=== PATIENT | female | born 1970 | race African-American/Black ===

== ENCOUNTER 2017-09-02 09:36 | Emergency (ER) | payer BC, OTHER ==
[2017-09-02 09:50] VITALS: BP 135/77; PULSE 70; TEMP 98.6; BMI 24.4
--- NOTE | 2017-09-02 10:06 | PDOC ---
History of Present Illness - General Chief Complaint: Injury Stated Complaint: LEFT HAND NUMB Time Seen by Provider: 09/02/17 09:41 History Source: Patient Exam Limitations: No Limitations - History of Present Illness Initial Comments: The patient is a 47F with no reported history who presents with approximately 1 month of hypothenar decreased sensation. She reports repeated banging of her elbow while on vacation, and since that time has been having parasthesias of her left 5th, partial left 4th, and hypothenar emience. She states that her symptoms are exacerbated by hyperflexion of her elbow. She denies any other associated symptoms or a history of neuropathy or DM. 09/02/17 09:42 Past History - Past Medical History Allergies/Adverse Reactions: Allergies Allergy/AdvReac Type Severity Reaction Status Date / Time No Known Allergies Allergy Verified 09/02/17 09:38 Home Medications: Ambulatory Orders No Home Medications 0 dose .ROUTE UTDICT 10/12/11 Anemia: No Asthma: No Cancer: No Cardiac Disorders: No CVA: No COPD: No CHF: No Dementia: No Diabetes: No GI Disorders: No Disorders: No HTN: No Hypercholesterolemia: No Liver Disease: No Seizures: No Thyroid Disease: No - Surgical History Abdominal Surgery: No Appendectomy: No Cardiac Surgery: No Cholecystectomy: No Lung Surgery: No Neurologic Surgery: No Orthopedic Surgery: No - Suicide/Smoking/Psychosocial Hx Smoking History: Never smoked Hx Alcohol Use: No Drug/Substance Use Hx: No Review of Systems - Review of Systems Comments:: GENERAL/CONSTITUTIONAL: No fever or chills. No weakness. HEAD, EYES, EARS, NOSE AND THROAT: No change in vision. No ear pain or discharge. No sore throat. CARDIOVASCULAR: No chest pain or shortness of breath RESPIRATORY: No cough, wheezing, or hemoptysis. GASTROINTESTINAL: No nausea, vomiting, diarrhea or constipation. GENITOURINARY: No dysuria, frequency, or change in urination. MUSCULOSKELETAL: No joint or muscle swelling or pain. No neck or back pain. SKIN: No rash NEUROLOGIC: Per HPI and No headache, vertigo, loss of consciousness ENDOCRINE: No increased thirst. No abnormal weight change HEMATOLOGIC/LYMPHATIC: No anemia, easy bleeding, or history of blood clots. ALLERGIC/IMMUNOLOGIC: No hives or skin allergy. 09/02/17 10:24 *Physical Exam - Physical Exam Comments: Gen: A/Ox3, NAD Resp: Breathing unlabored, CTAB CV: Distal pulses palpated, RRR Abd: NT, ND RUE: Inspection: - No focal erythema or swelling - No open wounds or gross deformity - No tenderness to palpation or ROM - ROM not limited Motor: Thumb: Active flex/ext at MCP, Active flex/ext at IP 2nd finger: Active flex/ext at MCP, Active flex/ext at PIP, Active flex/ext at DIP 3rd finger: Active flex/ext at MCP, Active flex/ext at PIP, Active flex/ext at DIP 4th finger: Active flex/ext at MCP, Active flex/ext at PIP, Active flex/ext at DIP 5th finger: Active flex/ext at MCP, Active flex/ext at PIP, Active flex/ext at DIP Sensory: 2-point discrimination intact to all 5 digits intact Vascular: 2+ Radial pulse intact Cap refill <2 secs throughout all 5 fingers LUE: Inspection: - No focal erythema or swelling - No open wounds or gross deformity - No tenderness to palpation or ROM - ROM not limited Motor: Thumb: Active flex/ext at MCP, Active flex/ext at IP 2nd finger: Active flex/ext at MCP, Active flex/ext at PIP, Active flex/ext at DIP 3rd finger: Active flex/ext at MCP, Active flex/ext at PIP, Active flex/ext at DIP 4th finger: Active flex/ext at MCP, Active flex/ext at PIP, Active flex/ext at DIP 5th finger: Active flex/ext at MCP, Active flex/ext at PIP, Active flex/ext at DIP Sensory: Decreased sensation to light touch noted in 4th and 5th digits with extension into the hypothenar eminence Vascular: 2+ Radial pulse intact Cap refill <2 secs throughout all 5 fingers 09/02/17 10:27 Medical Decision Making - Medical Decision Making The patient is a 47F with no reported PMH who presents with 3 weeks of ulnar neuropathy after repeated minor trauma to her medial elbow while in vacation. DDx: Ulnar neuropathy, infection; less likely fx/dislocation injury, diabetic neuropathy; not likely but considered stroke ED Course The patient was braced with an AIMEE bandage in a neutral position at the elbow after which she report some immediate relief. She was also given conservative therapy instructions including elevating the affected limb, not straining her elbow, and the use of NSAIDs to help reduce inflammation. She was given follow up and return precautions for which she verbalized understanding. 09/02/17 10:35 *DC/Admit/Observation/Transfer Diagnosis at time of Disposition: Ulnar neuropathy Qualifiers: Laterality: left Qualified Code(s): G56.22 - Lesion of ulnar nerve, left upper limb - Discharge Dispostion Disposition: HOME Condition at time of disposition: Stable Decision to Admit order: No - Referrals Referrals: Alfonzo Black MD [Staff Physician] - - Patient Instructions Printed Discharge Instructions: Peripheral Neuropathy, DI for Cubital Tunnel Syndrome Additional Instructions: Avoid resting on elbows at work, using elbows to lift the body from bed, and resting elbows on car windows while driving. At night, a pillow or folded towel may be placed in the elbow crease to keep the elbow in an extended position. Another option is to apply a commercial soft elbow splint. You may also use Ibuprofen or Naproxen (Advil & Aleve respectively) for pain control. Return to the emergency department if you experience fevers, loss of sensation or function, increased swelling, reddness, or severe pain. - Post Discharge Activity
--- NOTE | 2017-09-02 10:32 | PDOC ---
Attending Attestation - Resident Resident Name: PiotrMika rene - ED Attending Attestation I have performed the following: I have examined & evaluated the patient, The case was reviewed & discussed with the resident, I agree w/resident's findings & plan - HPI HPI: 09/02/17 10:27 Ac 47F - No medical history presenting with left forearm and elbow paresthesias x 3 weeks, s/p minor trauma to left elbow where she struck it against hard surface.. +paresthesia intermittently, +numbness and tingling originating from the elbow and radiating down to her pinky. No other traumatic injuries. Recently traveled to [place], where she continued lifting and strenuous activity. Also using elbow brace and ROM exercises with some relief.. - Physicial Exam PE: 09/02/17 10:28 Focused MSK Exam notable for soft compartments, 2+ DP/radialis pulses. Cap refill <2 sec. Proximal and distal strength 5/5, tableau analyst strength 5/5 - equal and symmetric. Sensation grossly intact to light touch over ulnar/median/radial nerve distribution. Neg Tinels sign. Point tenderness and eliciting of neuropathy from left medial epicondyle. ROM at elbow and wrist intact. Skin color normal color, warm and well perfused. - Medical Decision Making 09/02/17 10:31 47 YOF with left arm and elbow paresthesias x 3 weeks s/p minor trauma. worse with movement and palpation. findings most c/w ulnar neuropathy DDx. Sprain, contusion, ulnar neuropathy, carpal tunnel.. Low yield of XR imaging and doubt fracture with clinical exam and duration of sx. Exam most consistent with ulnar neuropathy. Low suspicion for compartment syndrome, NVI and no neuro deficits. low suspicion for vascular abnormality or infection. Discussed results with patient, reassurance and conservative management, made aware of impression and plan; most likely ulnar neuropathy from minor trauma. AIMEE wrap for comfort. Rest ice and elevation, particularly at nighttime when asleep. c/w extension/flexion exercises. Adequate rest and light activity as tolerated. . Pain control with OTC meds such as NSAID PRN. will be seeing neurologist. expectant course and management x 4-6 weeks total.
== END 2017-09-02 10:37 | disposition home or self-care (01) ==
LOC: FER 09:36
DX: G56.22 Lesion of ulnar nerve, left upper limb (principal)
CPT/HCPCS: 99282-25